=== PATIENT | female | born 1935 | race Caucasian/White ===

== ENCOUNTER 2018-12-29 00:32 | Emergency (ER) | payer MEDICARE, OTHER, SELFPAY ==
[2018-12-29 00:42] VITALS: BP 203/78; PULSE 90; O2SAT 97; BMI 29.0
--- NOTE | 2018-12-29 00:59 | DI.CT.S_ITS ---
PROCEDURE: CT HEAD/BRAIN WO CON INDICATIONS: fall with head injury TECHNIQUE: Noncontrast 4.5 mm thick angled axial sections acquired from the foramen magnum to the vertex, with coronal and sagittal reformats. For radiation dose reduction, the following was used: automated exposure control, adjustment of mA and/or kV according to patient size. COMPARISON: None. FINDINGS: Image quality: Excellent. CSF spaces: Basal cisterns are patent. No extra-axial fluid collections. The ventricles are symmetric in size and shape. Brain: Punctate area of hyperdensity is identified in the left temporal lobe seen on series 2 image 11. There is cerebral volume loss for age, with resultant ventricular and sulcal prominence. There are periventricular and deep white matter chronic small vessel ischemic changes. There is intracranial internal carotid artery atherosclerosis. Skull and face: Calvarium and visualized facial bones appear intact, without suspicious lesions. Mild left posterior parietal scalp hematoma. Sinuses: Visualized sinuses and mastoids are clear. IMPRESSION: 1. Punctate hyperdensity in the left temporal lobe as above. It is too small to definitively characterize. However, given history of trauma and hematoma, punctate hemorrhage cannot be definitively excluded. Recommend short interval imaging followup to document stability. 2. Right parietal scalp hematoma. The above findings were discussed with Dr. Miladis Pritchett on 12/29/18 at 7:38 AM. Dictated by: Mariana Pierce M.D. on 12/29/2018 at 7:36 Approved by: Mariana Pierce M.D. on 12/29/2018 at 7:41
[2018-12-29 03:13] VITALS: BP 189/79; PULSE 66; RESP 18; TEMP 36.5; O2SAT 99
[2018-12-29] MEDS: LIDOCAINE 1% W/EPI INJ 1 ML SUBCUT (03:26)
--- NOTE | 2018-12-29 07:47 | ED_ITS ---
HPI - Fall General Chief Complaint: Fall Stated Complaint: Fall at home hit head head laceration right Time Seen by Provider: 12/29/18 00:35 Source: patient and family Mode of arrival: ambulatory Limitations: no limitations History of Present Illness HPI Narrative: 83-year-old female nonsmoker with benign medical history presents with her for evaluation a ground level fall with scalp laceration. Patient tripped and fell backwards striking her head. She denies any loss of consciousness nor nausea or vomiting. She takes no true anticoagulant but does take aspirin daily. She denies any neck back or extremity pain. She denies any blurred vision, trouble with speech or other focal neurologic findings complaint: fall Onset (ago): hour(s) Fall from: standing Fall witnessed: yes, by family Place fall occurred: home Loss of consciousness: none Prolonged down time: no Symptoms prior to fall: none Context: tripped/slipped Location of injury: head Related Data Allergies Allergy/AdvReac Type Severity Reaction Status Date / Time CODEINE Allergy Unknown GI Uncoded 08/27/17 12:10 SULFA Allergy Unknown GI CHILD Uncoded 08/27/17 12:10 Review of Systems Constitutional Denies chills, Denies fever(s), Denies lethargy and Denies weakness Eyes Denies change in vision, Denies eye discharge, Denies irritation and Denies loss of vision ENT Ears, Nose, Mouth, and Throat: Denies change in voice, Denies neck pain and Denies sore throat Cardiovascular Denies chest pain, Denies irregular heart rhythm, Denies lightheadedness, Denies palpitations, Denies dyspnea, Denies dyspnea on exertion and Denies orthopnea Respiratory Denies cough, Denies dyspnea, Denies dyspnea on exertion and Denies wheezing Gastrointestinal Gastrointestinal: Denies abdominal pain, Denies change in bowel habits, Denies diarrhea, Denies nausea and Denies vomiting Genitourinary Denies hematuria, Denies flank pain, Denies urinary incontinence and Denies urinary urgency Musculoskeletal Denies neck pain Integumentary/Breasts Denies pruritus, Denies erythema, Denies rash and Reports wounds Neurologic Denies confusion, Denies loss of vision and Denies weakness Psychiatric Denies anxiety, Denies confusion, Denies depression, Denies homicidal ideation and Denies suicidal ideation Endocrine Denies palpitations Hematologic/Lymphatic Denies easy bruising Allergic/Immunologic Denies wheezing Exam Narrative Exam Narrative: GENERAL: [83] year old patient appears stated age. Well- nourished, well-developed patient, in mild distress. HEAD: 4 cm scalp laceration with active bleeding EYES: Pupils equal round and reactive. Extraocular motions intact. No scleral icterus. No injection or drainage. ENT: Nose without bleeding, purulent drainage. Throat without erythema, tonsillar hypertrophy or exudate. Airway patent. NECK: Trachea midline. Non tender CARDIOVASCULAR: Regular rate and rhythm without murmurs, gallops, or rubs. RESPIRATORY: Clear to auscultation. Breath sounds equal bilaterally. No wheezes, rales, or rhonchi. GASTROINTESTINAL: Abdomen soft, non-tender, nondistended. EXTREMITIES: No edema or joint tenderness. BACK: Nontender without deformity or crepitance. No flank tenderness. NEURO: AOx3. SKIN: No rash or erythema of visible areas Initial Vital Signs Initial Vital Signs: Vital Signs Pulse Rate 90 12/29/18 00:42 Blood Pressure 203/78 H 12/29/18 00:42 Pulse Oximetry 97 12/29/18 00:42 [facility] Social History Smoking Status: Never smoker Social History Smoking Status: Never smoker Procedures Laceration Repair Laceration 1: Site: scalp Size (cm): 4 Description: linear Depth: simple, single layer Local Anesthetic: lidocaine 1% and with epi Pre-repair: wound explored Skin layer closed with: cristina Course Orders Ordered: ED Orders 12/29/18 00:59 CT head/brain wo con Stat Discontinued Medications Lidocaine/Epinephrine (Xylocaine 1% W/Epi) 1 ml SUBCUT NOW ONE Stop: 12/29/18 01:49 Last Admin: 12/29/18 03:26 Dose: 1 ml Vital Signs - 8 hr 12/29/18 00:42 12/29/18 03:13 Temperature 97.7 F Pulse Rate 90 66 Respiratory Rate 18 Blood Pressure 203/78 H Blood Pressure [Right Arm] 189/79 H Pulse Oximetry 97 99 Discharge Plan Departure Patient Disposition: Home Clinical Impression: Laceration of scalp Qualifiers: Encounter type: initial encounter Qualified Code(s): S01.01XA - Laceration without foreign body of scalp, initial encounter Discharge Date/Time: 08/13/19 03:25 Interventions: ED Discharge Assessment Last Done: 12/29/18 03:25 Instructions: DI for Laceration Repair of the Scalp Activity Restrictions/Additional Instructions: Please keep the wound clean and dry to the best of your ability. Please monitor for signs of infection such as redness to the skin or increasing pain. Have the sutures removed by your doctor in about 7 days. If you are unable to get into your doctor, we would be happy to remove the sutures in that same timeframe.
== END 2018-12-29 03:25 | disposition home or self-care (01) ==
PROVIDERS: Emergency Provider Emergency Medicine; Family Provider Family Medicine
DX: S09.90XA Unspecified injury of head, initial encounter (principal)
CPT/HCPCS: 70450

== ENCOUNTER 2018-12-29 11:48 | Emergency (ER) | payer MEDICARE, OTHER, SELFPAY ==
[2018-12-29 12:24] VITALS: BP 151/69; PULSE 80; RESP 18; TEMP 37.1; O2SAT 98
--- NOTE | 2018-12-29 13:07 | DI.CT.S_ITS ---
PROCEDURE: CT HEAD/BRAIN WO CON INDICATIONS: reeval bleed TECHNIQUE: Noncontrast 4.5 mm thick angled axial sections acquired from the foramen magnum to the vertex, with coronal and sagittal reformats. For radiation dose reduction, the following was used: automated exposure control, adjustment of mA and/or kV according to patient size. COMPARISON: [facility], CT, CT HEAD/BRAIN WO CON, 12/29/2018, 1:02. FINDINGS: Image quality: Excellent. CSF spaces: Basal cisterns are patent. No extra-axial fluid collections. The ventricles are symmetric in size and shape. Brain: Unchanged punctate area of hyperdensity, right temporal lobe. There is cerebral volume loss for age, with resultant ventricular and sulcal prominence. There are periventricular and deep white matter chronic small vessel ischemic changes. There is intracranial internal carotid artery atherosclerosis. Skull and face: Calvarium and visualized facial bones appear intact, without suspicious lesions. Again noted is a right parietal scalp hematoma. Sinuses: Visualized sinuses and mastoids are clear. IMPRESSION: 1. Unchanged punctate hyperdensity in the right temporal lobe, of uncertain etiology. 2. Right parietal scalp hematoma. Dictated by: Mateo Beard M.D. on 12/29/2018 at 13:16 Approved by: Mateo Beard M.D. on 12/29/2018 at 13:33
--- NOTE | 2018-12-29 14:15 | ED.RECABL ---
HPI - Recheck/Abnormal Lab/Rx General Chief Complaint: Recheck/Abnormal Lab/Rx Stated Complaint: ER DR LAST NIGHT RQST CT FOR HEAD WOUND Time Seen by Provider: 12/29/18 12:05 Source: patient and family Mode of arrival: ambulatory Limitations: no limitations History of Present Illness HPI narrative: Patient returns to the emergency department for recheck of head CT after a ground level fall yesterday. Patient was seen last night with repair of a scalp laceration and evaluated with a head CT. Radiologist called this morning and stated that there was an area of hyperdensity that could be a calcification versus punctate hemorrhage, and that the patient should return for a repeat CT. Patient states she has been feeling fine ever since she left the emergency department. She denies any vomiting or development of neurologic deficits. No headache. No dizziness or lightheadedness. No other complaints at this time. Related Data Home Medications Medication Instructions Recorded Confirmed amiloride 5 mg PO DAILY 12/29/18 carvedilol 6.25 mg PO BID 12/29/18 12/29/18 celecoxib 200 mg PO DAILY 12/29/18 12/29/18 fluoxetine 20 mg PO DAILY 12/29/18 12/29/18 levothyroxine 100 mcg PO DAILY 12/29/18 12/29/18 losartan-hydrochlorothiazide 12/29/18 mirabegron [Myrbetriq] 50 mg PO DAILY 12/29/18 12/29/18 trazodone 50 mg PO DAILY 12/29/18 12/29/18 Allergies Allergy/AdvReac Type Severity Reaction Status Date / Time CODEINE Allergy Unknown GI Uncoded 08/27/17 12:10 SULFA Allergy Unknown GI CHILD Uncoded 08/27/17 12:10 Review of Systems Constitutional Denies chills, Denies fever(s), Denies lethargy and Denies weakness Eyes Denies change in vision, Denies eye discharge, Denies irritation and Denies loss of vision ENT Ears, Nose, Mouth, and Throat: Denies change in voice, Denies neck pain and Denies sore throat Cardiovascular Denies chest pain, Denies irregular heart rhythm, Denies lightheadedness, Denies palpitations, Denies dyspnea, Denies dyspnea on exertion and Denies orthopnea Respiratory Denies cough, Denies dyspnea, Denies dyspnea on exertion and Denies wheezing Gastrointestinal Gastrointestinal: Denies abdominal pain, Denies change in bowel habits, Denies diarrhea, Denies nausea and Denies vomiting Genitourinary Denies hematuria, Denies flank pain, Denies urinary incontinence and Denies urinary urgency Musculoskeletal Denies neck pain Integumentary/Breasts Denies pruritus, Denies erythema, Denies rash and Denies wounds Neurologic Denies confusion, Denies loss of vision and Denies weakness Psychiatric Denies anxiety, Denies confusion, Denies depression, Denies homicidal ideation and Denies suicidal ideation Endocrine Denies palpitations Hematologic/Lymphatic Denies easy bruising Allergic/Immunologic Denies wheezing [facility] Medical History Hypothyroidism (Acute) HTN (hypertension) (Acute) Surgical History No pertinent past surgical history (Acute) Social History Smoking Status: Never smoker Social History Smoking Status: Never smoker Exam Initial Vital Signs Initial Vital Signs: Vital Signs Temperature 98.8 F 12/29/18 12:24 Pulse Rate 80 12/29/18 12:24 Respiratory Rate 18 12/29/18 12:24 Blood Pressure 151/69 H 12/29/18 12:24 Pulse Oximetry 98 12/29/18 12:24 Const General: cooperative and well developed Nutritional Appearance: well nourished Orientation: alert, awake, oriented x3 and not confused [facility] Head: normocephalic and other (Approximately 6 cm laceration with cristina in place; CDI) Ears: external ears normal Nose: external nose normal and No nasal discharge Face and sinus: face symmetric and No dry mucous membranes Mouth: oral mucosae normal and moist mucous membranes Teeth and gingiva: dentition normal Eyes General: appearance normal, both eyes and all related structures Eyelids: eyelids normal Conjunctivae: conjunctivae normal Sclera: sclerae normal Pupils: PERRL EOM: EOM intact bilaterally Neck Neck: normal visual inspection, trachea midline, No lymphadenopathy, No midline deformity and No JVD Lymphatic: No lymphedema Chest Chest: normal inspection of the chest Resp Effort & Inspection: normal respiratory effort, able to speak in complete sentences, no respiratory distress and no use of accessory muscles Auscultation: clear to auscultation bilaterally, no rales, no rhonchi and no wheezes Cardio Rate: regular rate Rhythm: regular rhythm Heart Sounds: no click, no gallops, no murmurs and no rubs Pulses: normal peripheral pulses Back/Spine/Pelvis Back: No CVA tenderness Cervical Spine: cervical ROM normal and No pain with cervical ROM Thoracic/Lumbar Spine: thoracic and lumbar spine normal to inspection Skin General: no rashes or lesions noted, No jaundice and No petechiae Neuro General: alert, oriented x3, gait normal and no focal motor deficits Speech: speech normal Extrem General: full ROM, no clubbing, cyanosis or edema, no pedal edema and no calf tenderness Psych Appearance: well kempt Mental Status: mental status grossly normal Attitude: cooperative Thought Content: normal and suicidality Judgment: judgment good Course Course Narrative: CT scan was performed and found to be unchanged from the CT last night. Patient had no new symptoms and no complaints, and I felt she was stable discharge home. We have discussed home management of his symptoms, as well as the usual indications for return. Orders Ordered: ED Orders 12/29/18 13:07 CT head/brain wo con Stat Vital Signs - 8 hr 12/29/18 12:24 Temperature 98.8 F Pulse Rate 80 Respiratory Rate 18 Blood Pressure 151/69 H Pulse Oximetry 98 MDM - Recheck/Abnormal Lab/Rx Medical Records Attestation: I reviewed the patient's medical records. Imaging Data CT scan - head: Radiologist's impression: PROCEDURE: CT HEAD/BRAIN WO CON INDICATIONS: reeval bleed TECHNIQUE: Noncontrast 4.5 mm thick angled axial sections acquired from the foramen magnum to the vertex, with coronal and sagittal reformats. For radiation dose reduction, the following was used: automated exposure control, adjustment of mA and/or kV according to patient size. COMPARISON: [facility], CT, CT HEAD/BRAIN WO CON, 12/29/2018, 1:02. FINDINGS: Image quality: Excellent. CSF spaces: Basal cisterns are patent. No extra-axial fluid collections. The ventricles are symmetric in size and shape. Brain: Unchanged punctate area of hyperdensity, right temporal lobe. There is cerebral volume loss for age, with resultant ventricular and sulcal prominence. There are periventricular and deep white matter chronic small vessel ischemic changes. There is intracranial internal carotid artery atherosclerosis. Skull and face: Calvarium and visualized facial bones appear intact, without suspicious lesions. Again noted is a right parietal scalp hematoma. Sinuses: Visualized sinuses and mastoids are clear. IMPRESSION: 1. Unchanged punctate hyperdensity in the right temporal lobe, of uncertain etiology. 2. Right parietal scalp hematoma. Dictated by: Mateo Beard M.D. on 12/29/2018 at 13:16 Approved by: Mateo Beard M.D. on 12/29/2018 at 13:33 Discharge Plan Departure Patient Disposition: Home Clinical Impression: CHI (closed head injury) Qualifiers: Encounter type: initial encounter Qualified Code(s): S09.90XA - Unspecified injury of head, initial encounter Instructions: DI for Closed Head Injury Activity Restrictions/Additional Instructions: Your repeat CT scan is unchanged from the one you had last night. There is no evidence of bleeding, and the finding that was noted on last night CT is most likely calcification the brain, which is normal. You may follow up with your primary care physician, as needed. Prescriptions: No Action celecoxib 200 mg capsule 200 mg PO DAILY RF: 0 carvedilol 6.25 mg tablet 6.25 mg PO BID RF: 0 trazodone 50 mg tablet 50 mg PO DAILY RF: 0 levothyroxine 100 mcg tablet 100 mcg PO DAILY RF: 0 amiloride 5 mg tablet 5 mg PO DAILY RF: 0 losartan-hydrochlorothiazide 50-12.5 mg tablet RF: 0 fluoxetine 20 mg capsule 20 mg PO DAILY RF: 0 Myrbetriq 50 mg tablet extended release 24 hr 50 mg PO DAILY RF: 0
[2018-12-29 14:23] VITALS: BP 148/76; PULSE 64; RESP 12; O2SAT 97
== END 2018-12-29 14:28 | disposition home or self-care (01) ==
PROVIDERS: Emergency Provider Emergency Medicine
DX: S09.90XA Unspecified injury of head, initial encounter (principal); W18.30XA Fall on same level, unspecified, initial encounter; S01.01XA Laceration without foreign body of scalp, initial encounter; L76.21 Postprocedural hemorrhage of skin and subcutaneous tissue following a dermatologic procedure
CPT/HCPCS: 12002; 70450; 99282; 99283; 99284